=== PATIENT | male | born 2000 | race Caucasian/White ===

== ENCOUNTER 2020-05-02 18:09 | Emergency (ER) | payer OTHER ==
[~2020-05-02] VITALS: Ht 177.8 cm; Wt 70.5 kg
[2020-05-02 21:13] VITALS: BP 122/68
== END 2020-05-02 21:21 | disposition home or self-care (01) ==
LOC: EMS 18:09
DX: R07.89 Other chest pain (principal)
CPT/HCPCS: 71101; 99283; G0238